=== PATIENT | female | born 1950 | race Hispanic/Latino ===

== ENCOUNTER → 2017-10-09 | Day surgery (SDC) | payer OTHER ==
[~2017-10-09] MED LIST: ATENOLOL25 MG PO; FENTANYL CITRATE/PF 100MCG/2 ML INJ ONE; GABAPENTIN300 MG PO; LISINOPRIL-HCT1 EACH PO; MIDAZOLAM HCL 2 MG/2 ML VIAL ONE; PLAVIX75 MG PO; PROPOFOL IV EMULSION 10 MG/ML 50 ML VIAL ONE; [UNRECOGNIZED DRUG - OTHER] PO
== END | disposition home or self-care (01) ==
LOC: OR 08:29
PROVIDERS: ATTEND Internal Medicine Gastroenterology
DX: K29.50 Unspecified chronic gastritis without bleeding (principal); D12.2 Benign neoplasm of ascending colon; D12.3 Benign neoplasm of transverse colon; D12.4 Benign neoplasm of descending colon; K29.60 Other gastritis without bleeding; K44.9 Diaphragmatic hernia without obstruction or gangrene; K57.30 Diverticulosis of large intestine without perforation or abscess without bleeding; K64.8 Other hemorrhoids; I25.2 Old myocardial infarction; I10 Essential (primary) hypertension; I49.3 Ventricular premature depolarization; Z01.810 Encounter for preprocedural cardiovascular examination; Z79.02 Long term (current) use of antithrombotics/antiplatelets; Z68.35 Body mass index [BMI] 35.0-35.9, adult; Z95.5 Presence of coronary angioplasty implant and graft
CPT/HCPCS: 43239; 45384; 45385; 93005; J2250; 45378

== ENCOUNTER → 2019-11-05 | Day surgery (SDC) | payer MEDICARE, OTHER ==
--- NOTE | 2019-10-31 17:27 | Diagnostic Imaging Report ---
EXAM: CHEST 2 VIEWS DATE: 10/31/2019 5:09 PM INDICATION: ^[id number] ^[id number] ^PRE-OP COMPARISON: None FINDINGS: Lines and tubes: None Heart size normal. No focal pulmonary opacity, pleural effusion or pneumothorax. Upper abdomen unremarkable. No acute bony abnormality. Degenerative changes are seen in the thoracic spine. Aortic calcification is seen in the upper abdomen. IMPRESSION: No evidence for acute disease. Signed by: Dr. Zenon Landry M.D. on 10/31/2019 5:24 PM
[~2019-11-05] MED LIST changes: +ACETAMINOPHEN/CODEINE 300MG - 30MG TAB ONE; +BUPIVACAINE 0.25%/EPI 30ML SDV INJ ONE; +CEFAZOLIN SOD 1 GM/NS 50ML 100 ML IV ONE; +CRESTOR10 MG PO; +DEXAMETHASONE SOD PHOS INJ 4 MG/ML VIAL ONE; -FENTANYL CITRATE/PF 100MCG/2 ML INJ ONE; +KETOROLAC TROMETHAMINE 30 MG/ML VIAL ONE; +LIDOCAINE HCL 2% LOCAL INJ 5 ML SDV VIAL INJ ONE; +LORAZEPAM2 MG/1 M1 PO; -MIDAZOLAM HCL 2 MG/2 ML VIAL ONE; +ONDANSETRON HCL INJ 2MG/ML 2ML 2 MG/ML VIAL ONE; +PROPOFOL IV EMULSION 10 MG/ML 20 ML VIAL ONE; -PROPOFOL IV EMULSION 10 MG/ML 50 ML VIAL ONE; +SEVOFLURANE INHAL SOLN 250 ML PEN BTL ONE
[2019-11-05 10:55] VITALS: BP 157/84
--- NOTE | 2019-11-13 20:51 | Operative Report ---
DATE OF PROCEDURE: 11/05/2019 SURGEON: Antonino Potter MD PREOPERATIVE DIAGNOSES: 1. Right knee medial meniscus tear. 2. Right knee degenerative joint disease of the knee. POSTOPERATIVE DIAGNOSES: 1. Right knee medial meniscus tear. 2. Right knee lateral meniscus tear. 3. Right knee degenerative joint disease of the knee. OPERATIONS/PROCEDURES PERFORMED: The patient underwent right knee examination under anesthesia, right knee arthroscopy, right knee partial medial meniscectomy, right knee partial lateral meniscectomy, right knee chondroplasty of the patella, the trochlea, the medial femoral condyle, the medial tibial plateau, the lateral femoral condyle, and lateral tibial plateau. GEOMETRY PROFESSOR: There was no inventory assistant. ANESTHESIA: General endotracheal intubation anesthesia. IV FLUIDS: Per the anesthesia record. BRIEF DESCRIPTION OF THE PATIENT'S OPERATIVE PROCEDURE: Ms. Hodge was seen in the operating room and placed in the supine position on the operating table. Following induction of general anesthesia as well as endotracheal intubation, the patient's right lower extremity was examined under anesthesia. She was found to have a mild effusion within the knee joint, but otherwise ligamentously stable knee. The patient's lower extremity was prepped and draped in a standard surgical fashion. A two-port technique used to provide this patient arthroscopic evaluation of the knee joint. Examination of suprapatellar pouch, medial and lateral gutters found no evidence of loose bodies. There was however evidence of chondromalacia of the patellar and trochlear surfaces. Scope was advanced into the medial compartment. Examination of medial compartment demonstrated a torn medial meniscus. There was also chondromalacia of the articulating surfaces. A combination of biting forceps and motorized shaver was used to resect the torn portion of meniscus. Chondroplasties of the medial femoral condyle and medial tibial plateau were performed at this time. Scope was advanced to the intercondylar notch. The anterior cruciate ligament was identified and found to be intact. Scope was advanced to lateral compartment and chondromalacia of the articulating surfaces were encountered. There was also a tear of lateral meniscus. A combination of biting forceps and motorized shaver used to resect the torn portion of meniscus. Chondroplasties of the lateral femoral condyle and lateral tibial plateau were performed at this time. The scope was then advanced in suprapatellar pouch and chondroplasties of the patellar and trochlear performed. The knee was deflated with sterile normal saline. The portal sites were closed using 4-0 nylon suture. The portal sites as well as knee itself were injected 0.5% Marcaine with epinephrine. Sterile dressings were applied and the patient was awakened and taken to postanesthesia care in stable condition. MD BARBARA Simmons/RAJINDER /[id number]
== END | disposition home or self-care (01) ==
LOC: OR 08:17
PROVIDERS: ATTEND Specialist
DX: S83.221A Peripheral tear of medial meniscus, current injury, right knee, initial encounter (principal); S83.281A Other tear of lateral meniscus, current injury, right knee, initial encounter; M17.11 Unilateral primary osteoarthritis, right knee; I25.10 Atherosclerotic heart disease of native coronary artery without angina pectoris; I10 Essential (primary) hypertension; I49.3 Ventricular premature depolarization; E78.00 Pure hypercholesterolemia, unspecified; X58.XXXA Exposure to other specified factors, initial encounter; Z01.810 Encounter for preprocedural cardiovascular examination; Z01.812 Encounter for preprocedural laboratory examination; Z01.818 Encounter for other preprocedural examination; Z11.59 Encounter for screening for other viral diseases; Z79.02 Long term (current) use of antithrombotics/antiplatelets; Z68.34 Body mass index [BMI] 34.0-34.9, adult; Z95.5 Presence of coronary angioplasty implant and graft; M22.41 Chondromalacia patellae, right knee
CPT/HCPCS: 29880; 71046; 87635; 93005; J0690; J1100; J1885; J2001; J2405; J2704